=== PATIENT | female | born 1980 | race Two or more races ===

== ENCOUNTER → 2021-09-15 | Emergency (ER) | payer SELFPAY ==
[~2021-09-15] MED LIST: ONDA-144 PO
[2021-09-15 21:56] VITALS: BP 138/95
[2021-09-15 23:23] LABS: Urine Bacteria FEW /hpf (None Seen); Urine Blood 3+ /uL (Negative); Urine Mucus FEW (None Seen); Urine Specific Gravity 1.012 (1.001-1.035); Urine WBC 10 /hpf (0 - 5)
== END | disposition home or self-care (01) ==
LOC: ER 21:56
DX: N20.0 Calculus of kidney (principal)
CPT/HCPCS: 74176; 81001; 81025